=== PATIENT | male | born 2000 | race Caucasian/White ===

== ENCOUNTER → 2018-03-05 | Outpatient (CLI) | payer OTHER ==
[~2018-03-05] MED LIST: CORTISPORIN EAR10 M1 OT; KETOCONAZOLE120 ML TP
== END | disposition home or self-care (01) ==
LOC: LAB 09:11
DX: R42 Dizziness and giddiness (principal); R51 Headache; E78.5 Hyperlipidemia, unspecified; R00.2 Palpitations

== ENCOUNTER → 2018-03-10 | Outpatient (CLI) | payer OTHER | END | disposition home or self-care (01) | LOC: PPHC 15:11 | DX: Z01.89 Encounter for other specified special examinations (principal) ==

== ENCOUNTER 2021-01-24 07:31 | Inpatient (IN) | payer OTHER ==
[~2021-01-24] VITALS: Ht 180.3 cm; Wt 63.5 kg
--- NOTE | 2021-01-24 07:39 | NUR ---
SE RECIBE PTE MASCULINO ALERTA Y ORIENTADO EN L[place] ESFERAS REFIERE DOLOR E HINCHAZON EN AREA DE LOS CODOS, DESDE HACE DOS OCHOA. PTE INDICA SE ENCONTRABA REALIZANDO EJERCICIOS EN EL HOGAR. SE OBSERVA AREA DEL CODO R+ LEVEMENTE EDEMATOSO.
--- NOTE | 2021-01-24 09:19 | NUR ---
PTE EVALUADO POR LA DRA THAO QUIEN ORDENA EL TX. MR A SHAKIRA ORIENTA SOBRE EL TX ORDENADO, LO CUAL REFIERE ENTENDER, REALIZA PRUEBAS DE LABORATORIO Y ADMINISTRA MEDICAMENTOS RASHID ORDEN MEDICA Y SIGUIENDO MEDIDAS ASEPTCAS.
--- NOTE | 2021-01-25 00:38 | NUR ---
SE RECIBE PACIENTE ALERTA Y ORIENTADO EN TIEMPO LUGAR Y PERSONA. CON VENOPUNCION PATENTE LETICIA DE ERITEMA RECIBIENDO AL MOMENTO TERAPIA DE IVF'S 0.9 1000ML A 150ML/HR. PACIENTE LETICIA DE DOLOR AL MOMENTO. PENDIENTE MUESTRAS A LAS 6AM.
--- NOTE | 2021-01-25 06:27 | NUR ---
PACIENTE ALERAT Y ORIENTADO X3. SE ORIENTO SOBRE PROCEDIMIENTO A REALIZAR Y REFIRIO ENTENDER. SE REALIZO MUESTRAS DE LABORATORIO BAJO MEDIDAS ASEPTICAS. SE MANTIENE BAJO OBSERVACION POR CAMBIOS SIGNIFICATIVOS.
--- NOTE | 2021-01-25 07:17 | NUR ---
SE RECIBE PTE MASCULINO ALERTA Y ORIENTADO EN [place] E[place] DEL TURNO ANTERIOR. SE OBSERVA CON BUEN PATRON RESPIRATROIO Y NO REFIERE DOLOR AL MOMENTO. VENOPUNCION PATENTE LETICIA DE EDEMA Y ERITEMA RECIBIENDO TERAPIA DE IVFS 0.9NSS BAJANDO A 100ML/HR. PENDIENTE CONSULTA CON MEDICINA INTERNA.
== END 2021-02-02 18:34 | disposition home or self-care (01) | DRG 558 ==
LOC: ER 07:31 → MEDI 01-25 09:45 → SEC-K 01-25 09:45 → MEDI 01-25 15:10
PROVIDERS: ADMIT Internal Medicine; ATTEND Internal Medicine
PROC: BW40ZZZ Ultrasonography of Abdomen (ICD-10-PCS; principal; 2021-01-26)
DX: M62.82 Rhabdomyolysis (principal); M60.88 Other myositis, other site

== ENCOUNTER → 2021-02-26 | Outpatient (CLI) | payer OTHER | END | disposition home or self-care (01) | LOC: LAB 08:44 | PROVIDERS: ATTEND Internal Medicine | DX: M62.82 Rhabdomyolysis (principal); E78.2 Mixed hyperlipidemia; R79.89 Other specified abnormal findings of blood chemistry; D50.1 Sideropenic dysphagia; N39.8 Other specified disorders of urinary system; E03.2 Hypothyroidism due to medicaments and other exogenous substances ==